=== PATIENT | female | born 1985 | race Caucasian/White ===

== ENCOUNTER 2017-08-26 22:24 | Inpatient (IN) | payer BC ==
[2017-08-26] MEDS ORDERED: Sodium Chloride 0.9% 10 ML Syringe FLUSH PRN (23:08)
[2017-08-26] MEDS ORDERED: Ondansetron 4 MG/2 ML SDV IVPUSH PRN (23:08)
[2017-08-26] MEDS ORDERED: Calcium Carbonate 500 MG Tab.Chew PO PRN (23:16)
[2017-08-27] MEDS ORDERED: Bupivacaine 0.25% 10 ML SDV ONE (01:00)
[2017-08-27] MEDS: Lactated Ringers 1,000 ML IV SCH ×5 (01:30→07:18)
[2017-08-27] MEDS ORDERED: fentaNYL 100 MCG/2 ML SDV ONE (01:57)
[2017-08-27] MEDS ORDERED: diphenhydrAMINE 50 MG/ML SDV IVPUSH PRN (02:07)
[2017-08-27] MEDS ORDERED: ePHEDrine 50 MG/ML SDV IVPUSH PRN (02:07)
[2017-08-27] MEDS ORDERED: Ondansetron 4 MG/2 ML SDV IVPUSH PRN (02:07)
[2017-08-27] MEDS ORDERED: fentaNYL 100 MCG/2 ML SDV EPIDUR PRN (02:07)
[2017-08-27] MEDS ORDERED: Bupivacaine/fentaNYL/NS 100 ML Bag EPIDUR SCH (02:15)
--- NOTE | 2017-08-27 03:46 | PCM.PREANE ---
Preanesthetic Assessment - Anesthesia/Transfusion/Family Hx Anesthesia History: Prior Anesthesia Reaction Type of Anesthesia Reaction: Excessive Nausea/Vomiting Family History of Anesthesia Reaction: No Transfusion History: No Prior Transfusion(s) - Review of Systems General: No Symptoms Pulmonary: No Symptoms Cardiovascular: No Symptoms Gastrointestinal: No Symptoms Neurological: No Symptoms Other: Reports: None - Physical Assessment Pulse: 84 O2 Sat by Pulse Oximetry: 99 Respiratory Rate: 16 Blood Pressure: 114/75 Vital Signs: Last Vital Signs Temp 36.6 C 08/26/17 23:10 Pulse 84 08/26/17 22:47 Resp 16 08/26/17 23:10 BP 114/75 08/26/17 22:47 Pulse Ox Height: 1.7 m Weight: 78.471 kg ASA Class: 2 Mental Status: Alert & Oriented x3 Airway Class: Mallampati = 1 Dentition: Reports: Normal Dentition Thyro-Mental Finger Breadths: 3 Mouth Opening Finger Breadths: 3 ROM/Head Extension: Full Lungs: Clear to Auscultation, Normal Respiratory Effort Cardiovascular: Regular Rate, Regular Rhythm - Lab Values: Laboratory Last Values WBC 8.89 K/mm3 (3.98-10.04) 08/26/17 23:20 RBC 4.35 M/mm3 (3.98-5.22) 08/26/17 23:20 Hgb 12.4 gm/L (11.2-15.7) 08/26/17 23:20 Hct 36.2 % (34.1-44.9) 08/26/17 23:20 MCV 83.2 fl (79.4-94.8) 08/26/17 23:20 MCH 28.5 pg (25.6-32.2) 08/26/17 23:20 MCHC 34.3 g/dl (32.2-35.5) 08/26/17 23:20 RDW Std Deviation 54.5 fL (36.4-46.3) H 08/26/17 23:20 Plt Count 146 K/mm3 (182-369) L 08/26/17 23:20 MPV 8.2 fl (9.4-12.3) L 08/26/17 23:20 Neut % (Auto) 63.1 % (34.0-71.1) 08/26/17 23:20 Lymph % (Auto) 26.0 % (19.3-51.7) 08/26/17 23:20 [place] % (Auto) 8.4 % (4.7-12.5) 08/26/17 23:20 Eos % (Auto) 1.5 (0.7-5.8) 08/26/17 23:20 Baso % (Auto) 0.3 % (0.1-1.2) 08/26/17 23:20 Neut # (Auto) 5.61 K/mm3 (1.56-6.13) 08/26/17 23:20 Lymph # (Auto) 2.31 K/mm3 (1.18-3.74) 08/26/17 23:20 [place] # (Auto) 0.75 K/mm3 (0.24-0.36) H 08/26/17 23:20 Eos # (Auto) 0.13 K/mm3 (0.04-0.36) 08/26/17 23:20 Baso # (Auto) 0.03 K/mm3 (0.01-0.08) 08/26/17 23:20 Manual Slide Review Abnormal smear 08/26/17 23:20 - Allergies Allergies/Adverse Reactions: Allergies Allergy/AdvReac Type Severity Reaction Status Date / Time blackberries Allergy Intermediate Hives Uncoded 07/12/17 04:11 - Acknowledgements Anesthesia Type Planned: Epidural Pt an Appropriate Candidate for the Planned Anesthesia: Yes Alternatives and Risks of Anesthesia Discussed w Pt/Guardian: Yes Pt/Guardian Understands and Agrees with Anesthesia Plan: Yes PreAnesthesia Questionnaire [employer] History: Reports: - Past Surgical History Musculoskeletal Surgical History: Reports: Other (See Below) Other Musculoskeletal Surgeries/Procedures:: acl- left - SUBSTANCE USE Smoking Status *Q: Never Smoker Second Hand Smoke Exposure: No Recreational Drug Use History: No - HOME MEDS Home Medications: Home Meds Pnv with Ca,No.72/Iron/Fa [Pnv Plus Multivit Tab] 1 each PO DAILY 05/23 [History] Ferrous Sulfate [Iron] 1 tab PO DAILY 08/26/17 [History] - CURRENT (IN HOUSE) MEDS Current Meds: Current Medications Calcium Carbonate/Glycine (Tums) 500 mg PO Q2HR PRN PRN Reason: Indigestion Last Admin: 08/26/17 23:31 Dose: 500 mg Diphenhydramine HCl (Benadryl) 25 mg IVPUSH Q6H PRN PRN Reason: Pruritis Ephedrine Sulfate (Ephedrine Sulfate) 5 mg IVPUSH ASDIRECTED PRN PRN Reason: Hypotension Fentanyl (Sublimaze) 100 mcg EPIDUR ONETIME PRN PRN Reason: Pain Fentanyl/Bupivacaine HCl (Fentanyl/Bupivacaine/Ns 2 Mcg-0.125% 100 Ml) 100 ml EPIDUR ASDIRECTED [facility] Last Admin: 08/27/17 02:44 Dose: 100 ml Lactated Ringer's (Ringers, Lactated) 1,000 mls @ 100 mls/hr IV ASDIRECTED ANNALISE Last Admin: 08/27/17 02:51 Dose: 999 mls/hr Oxytocin 20 unit/ Lactated (Ringer's) 1,002 mls @ 1,503 mls/hr IV TITRATE [facility]; Protocol Ondansetron HCl (Zofran) 4 mg IVPUSH Q4H PRN PRN Reason: Nausea/Vomiting Ondansetron HCl (Zofran) 4 mg IVPUSH ONETIME PRN PRN Reason: Nausea/Vomiting Sodium Chloride (Saline Flush) 10 ml FLUSH ASDIRECTED PRN PRN Reason: Keep Vein Open Discontinued Medications Fentanyl (Sublimaze) Confirm Administered Dose 100 mcg .ROUTE .STK-MED ONE Stop: 08/27/17 01:58 Last Admin: 08/27/17 02:45 Dose: 100 mcg
[2017-08-27] MEDS ORDERED: Oxytocin/Lactated Ringers 10 UNIT/1,000 ML BAG IV SCH (04:30)
--- NOTE | 2017-08-27 07:16 | PCM.LDHP ---
L&D History of Present Illness - General Date of Service: 08/27/17 Admit Problem/Dx: Patient Status Order with Admit Dx/Problem 08/26/17 23:10 Patient Status [ADT] Routine Admission Diagnosis/Problem Admission Diagnosis/Problem Normal labor Source of Information: Patient History Limitations: Reports: No Limitations - History of Present Illness Introduction:: 31-year-old MARILYN 08/29/17 presented to labor and delivery on 08/26/17 with spontaneous rupture membranes at 2100 hrs. clear fluid patient on 08/27/17 is 39 weeks and 5 days estimated gestational age. Group B strep is negative patient is 8 cm dilated cephalic presentation Pain Score: 10 Improves with: Reports: None Worsens with: Reports: None Associated Symptoms: Reports: N - Related Data Allergies/Adverse Reactions: Allergies Allergy/AdvReac Type Severity Reaction Status Date / Time blackberries Allergy Intermediate Hives Uncoded 07/12/17 04:11 Home Medications: Home Meds Pnv with Ca,No.72/Iron/Fa [Pnv Plus Multivit Tab] 1 each PO DAILY 05/23 [History] Ferrous Sulfate [Iron] 1 tab PO DAILY 08/26/17 [History] Past Medical History [facility] History: Reports: - Past Surgical History Musculoskeletal Surgical History: Reports: Other (See Below) Other Musculoskeletal Surgeries/Procedures:: acl- left Social & Family History - Family History Family Medical History: Noncontributory - Tobacco Use Smoking Status *Q: Never Smoker Second Hand Smoke Exposure: No - Recreational Drug Use Recreational Drug Use: No H&P Review of Systems - Review of Systems: Review Of Systems: See Below General: Reports: No Symptoms HEENT: Reports: No Symptoms Pulmonary: Reports: No Symptoms Cardiovascular: Reports: No Symptoms Gastrointestinal: Reports: No Symptoms Genitourinary: Reports: No Symptoms Musculoskeletal: Reports: No Symptoms Skin: Reports: No Symptoms Psychiatric: Reports: No Symptoms Neurological: Reports: No Symptoms Hematologic/Lymphatic: Reports: No Symptoms Immunologic: Reports: No Symptoms L&D Exam - Exam Exam: See Below - Vital Signs Vital Signs: Last Vital Signs Temp 97.9 F 08/26/17 23:10 Pulse 84 08/27/17 03:46 Resp 16 08/27/17 03:46 BP 114/75 08/27/17 03:46 Pulse Ox 99 08/27/17 03:46 Weight: 173 lb - OB Specific Fundal Height In cm: 39 Contraction Duration (sec): 60 Contraction Frequency (min): 5 Contraction Intensity: Mild to Moderate Movement: Active Heart Tones: Present Heart Tones per Min: 135 Heart Rate (FHR) Variability: Moderate (6-25 bmp) Presentation: Vertex - [place] Score [place] Score Cervix Position: Posterior [place] Score Consistency: Soft [place] Score Effacement: >80% [place] Score Dilation: 3-4 cm [place] Score 's Station: -1 ,0 [place] Score Total: 9 - Exam General: Alert, Oriented HEENT: Conjunctiva Clear, Mucosa Moist & [place], PERRLA Neck: Supple, Trachea Midline Lungs: Clear to Auscultation, Normal Respiratory Effort Cardiovascular: Regular Rate, Regular Rhythm GI/Abdominal Exam: Normal Bowel Sounds, Soft, Non-Tender Genitourinary: Normal external exam, Normal bimanual exam, Normal speculum exam Extremities: Normal Inspection, Normal Range of Motion, Non-Tender, No Pedal Edema, Normal Capillary Refill Skin: Warm, Dry, Intact Neurological: Reflexes Equal Bilateral Psychiatric: Alert, Normal Affect, Normal Mood - Patient Data Lab Results Last 24 hrs: Laboratory Results - last 24 hr 08/26/17 Range/Units 23:20 WBC 8.89 (3.98-10.04) K/mm3 RBC 4.35 (3.98-5.22) M/mm3 Hgb 12.4 (11.2-15.7) gm/L Hct 36.2 (34.1-44.9) % MCV 83.2 (79.4-94.8) fl MCH 28.5 (25.6-32.2) pg MCHC 34.3 (32.2-35.5) g/dl RDW Std Deviation 54.5 H (36.4-46.3) fL Plt Count 146 L (182-369) K/mm3 MPV 8.2 L (9.4-12.3) fl Neut % (Auto) 63.1 (34.0-71.1) % Lymph % (Auto) 26.0 (19.3-51.7) % [place] % (Auto) 8.4 (4.7-12.5) % Eos % (Auto) 1.5 (0.7-5.8) Baso % (Auto) 0.3 (0.1-1.2) % Neut # (Auto) 5.61 (1.56-6.13) K/mm3 Lymph # (Auto) 2.31 (1.18-3.74) K/mm3 [place] # (Auto) 0.75 H (0.24-0.36) K/mm3 Eos # (Auto) 0.13 (0.04-0.36) K/mm3 Baso # (Auto) 0.03 (0.01-0.08) K/mm3 Manual Slide Review Abnormal smear Result Diagrams: 08/26/17 23:20 - Problem List (1) 39 weeks gestation of SNOMED Code(s): 73648182 ICD Code: Z3A.39 - 39 WEEKS GESTATION OF Status: Acute Current Visit: Yes Problem List Initiated/Reviewed/Updated: No Orders Last 24hrs: Active Orders 24 hr Category Date Time Status Patient Status [ADT] Routine ADT 08/26/17 23:10 Active Activity as Tolerated [RC] PFP Care 08/26/17 23:10 Active Communication Order [RC] ASDIRECTED Care 08/26/17 23:10 Active Heart Tones [RC] ASDIRECTED Care 08/26/17 23:10 Active Notify Provider [RC] ASDIRECTED Care 08/27/17 02:07 Active Notify Provider [RC] PFP Care 08/26/17 23:10 Active Notify Provider [RC] PRN Care 08/26/17 23:10 Active Peripheral IV Care [RC] . DIRECTED Care 08/26/17 23:10 Active Pump Management, Intrathecal [RC] ASDIRECTED Care 08/26/17 23:10 Active Urinary Catheter Assessment [RC] ASDIRECTED Care 08/26/17 23:08 Active Vital Signs [RC] 09,15,21,03 Care 08/26/17 23:10 Active Clear Liquid Diet [DIET] Diet 08/26/17 Dinner Active Bupivacaine/fentaNYL/NS [fentaNYL/Bupivacaine/NS 2 MCG- Med 08/27/17 02:15 Active 0.125% 100 ML] 100 ml EPIDUR ASDIRECTED Calcium Carbonate [Tums] Med 08/26/17 23:16 Active 500 mg PO Q2HR PRN Lactated Ringers [Ringers, Lactated] 1,000 ml Med 08/26/17 23:15 Active IV ASDIRECTED Ondansetron [Zofran] Med 08/27/17 02:07 Active 4 mg IVPUSH ONETIME PRN Ondansetron [Zofran] Med 08/26/17 23:08 Active 4 mg IVPUSH Q4H PRN Oxytocin [Pitocin] 20 unit Med 08/26/17 23:15 Active Lactated Ringers [Ringers, Lactated] 1,000 ml IV TITRATE Oxytocin/Lactated Ringers [Pitocin in LR 10 Units/1,000 Med 08/27/17 04:30 Active ML] 10 unit in 1,000 ml IV TITRATE Sodium Chloride 0.9% [Saline Flush] Med 08/26/17 23:08 Active 10 ml FLUSH ASDIRECTED PRN diphenhydrAMINE [Benadryl] [facility] 08/27/17 02:07 Active 25 mg IVPUSH Q6H PRN ePHEDrine [ePHEDrine Sulfate] [facility] 08/27/17 02:07 Active 5 mg IVPUSH ASDIRECTED PRN fentaNYL [Sublimaze] Med 08/27/17 02:07 Active 100 mcg EPIDUR ONETIME PRN Electronic Heart Tones Ext w TOCO [WOMSER] Oth 08/26/17 23:10 Ordered Routine Electronic Heart Tones Internal [WOMSER] Per Unit Ot 08/26/17 23:10 Ordered Routine Peripheral IV Insertion Adult [OM.PC] Routine Ot 08/26/17 23:10 Ordered Resuscitation Status Routine Resus Stat 08/26/17 23:08 Ordered Medication Orders Calcium Carbonate/Glycine (Tums) 500 mg PO Q2HR PRN PRN Reason: Indigestion Last Admin: 08/26/17 23:31 Dose: 500 mg Diphenhydramine HCl (Benadryl) 25 mg IVPUSH Q6H PRN PRN Reason: Pruritis Ephedrine Sulfate (Ephedrine Sulfate) 5 mg IVPUSH ASDIRECTED PRN PRN Reason: Hypotension Fentanyl (Sublimaze) 100 mcg EPIDUR ONETIME PRN PRN Reason: Pain Fentanyl/Bupivacaine HCl (Fentanyl/Bupivacaine/Ns 2 Mcg-0.125% 100 Ml) 100 ml EPIDUR ASDIRECTED [facility] Last Admin: 08/27/17 02:44 Dose: 100 ml Lactated Ringer's (Ringers, Lactated) 1,000 mls @ 100 mls/hr IV ASDIRECTED ANNALISE Last Admin: 08/27/17 05:20 Dose: 500 mls/hr Infusion: 08/27/17 03:52 Dose: 999 mls/hr Admin: 08/27/17 02:51 Dose: 999 mls/hr Infusion: 08/27/17 02:51 Dose: 999 mls/hr Admin: 08/27/17 02:15 Dose: 999 mls/hr Infusion: 08/27/17 02:15 Dose: 999 mls/hr Admin: 08/27/17 01:30 Dose: 999 mls/hr Oxytocin 20 unit/ Lactated (Ringer's) 1,002 mls @ 1,503 mls/hr IV TITRATE ANNALISE; Protocol Oxytocin/Lactated Ringer's (Pitocin In Lr 10 Units/1,000 Ml) 10 unit in 1,000 mls @ 12 mls/hr IV TITRATE ANNALISE; Protocol Last Admin: 08/27/17 04:43 Dose: 2 munits/min, 12 mls/hr Ondansetron HCl (Zofran) 4 mg IVPUSH Q4H PRN PRN Reason: Nausea/Vomiting Ondansetron HCl (Zofran) 4 mg IVPUSH ONETIME PRN PRN Reason: Nausea/Vomiting Sodium Chloride (Saline Flush) 10 ml FLUSH ASDIRECTED PRN PRN Reason: Keep Vein Open Assessment/Plan Comment:: Plan delivery.
[2017-08-27] MEDS ORDERED: Lidocaine 1% 50 ML MDV ONE (08:06)
--- NOTE | 2017-08-27 08:23 | PCM.DEL ---
L & D Note - General Info Date of Service: 08/27/17 Mother's Due Date: 08/28/17 - Delivery Note Labor: Spontaneous, Augmented by Oxytocin Delivery Outcome: Livebirth (Male liveborn at 0803 hrs. on 08/27/17Wednesday MARTIR nuchal cord 1 tight cut prior to delivery and delivered within 10 seconds. Apgars 7/9 weight 30/5/10 grams 7 pounds 11.8 ounces second-degree laceration) Infant Delivery Method: Spontaneous Vaginal Delivery-Single Delivery Mode: Spontaneous Presentation: Right Occiput Anterior (MARTIR) Nuchal Cord: Present (Tight cut prior to delivery because unable to reduce over head or shoulders delivered within 10 seconds) Prep: Povidone-Iodine (Betadine Anesthesia Type: Epidural Amniotic Fluid Description: Clear Episiotomy Type: None Laceration: 2nd Degree Suture type: Other (Monocryl 30 times one) Suture size: 3-0 Placenta: Intact, Spontaneous (Eccentric cord insertion) Estimated Blood Loss: 250 Resuscitation Needed: No [place]: Suctioned, Bulb Syringe, Stimulated, Warmed, [place] Used, Warmer Used Provider: Juan Mata Score 1 min: 7 Score 5 min: 9 - Patient Data Vitals - Most Recent: Last Vital Signs Temp 97.9 F 08/26/17 23:10 Pulse 84 08/27/17 03:46 Resp 16 08/27/17 03:46 BP 114/75 08/27/17 03:46 Pulse Ox 99 08/27/17 03:46 Weight - Most Recent: 173 lb Lab Results Last 24 Hours: Laboratory Results - last 24 hr 08/26/17 Range/Units 23:20 WBC 8.89 (3.98-10.04) K/mm3 RBC 4.35 (3.98-5.22) M/mm3 Hgb 12.4 (11.2-15.7) gm/L Hct 36.2 (34.1-44.9) % MCV 83.2 (79.4-94.8) fl MCH 28.5 (25.6-32.2) pg MCHC 34.3 (32.2-35.5) g/dl RDW Std Deviation 54.5 H (36.4-46.3) fL Plt Count 146 L (182-369) K/mm3 MPV 8.2 L (9.4-12.3) fl Neut % (Auto) 63.1 (34.0-71.1) % Lymph % (Auto) 26.0 (19.3-51.7) % [place] % (Auto) 8.4 (4.7-12.5) % Eos % (Auto) 1.5 (0.7-5.8) Baso % (Auto) 0.3 (0.1-1.2) % Neut # (Auto) 5.61 (1.56-6.13) K/mm3 Lymph # (Auto) 2.31 (1.18-3.74) K/mm3 [place] # (Auto) 0.75 H (0.24-0.36) K/mm3 Eos # (Auto) 0.13 (0.04-0.36) K/mm3 Baso # (Auto) 0.03 (0.01-0.08) K/mm3 Manual Slide Review Abnormal smear Med Orders - Current: Current Medications Calcium Carbonate/Glycine (Tums) 500 mg PO Q2HR PRN PRN Reason: Indigestion Last Admin: 08/26/17 23:31 Dose: 500 mg Diphenhydramine HCl (Benadryl) 25 mg IVPUSH Q6H PRN PRN Reason: Pruritis Ephedrine Sulfate (Ephedrine Sulfate) 5 mg IVPUSH ASDIRECTED PRN PRN Reason: Hypotension Fentanyl (Sublimaze) 100 mcg EPIDUR ONETIME PRN PRN Reason: Pain Fentanyl/Bupivacaine HCl (Fentanyl/Bupivacaine/Ns 2 Mcg-0.125% 100 Ml) 100 ml EPIDUR ASDIRECTED ANNALISE Last Admin: 08/27/17 02:44 Dose: 100 ml Lactated Ringer's (Ringers, Lactated) 1,000 mls @ 100 mls/hr IV ASDIRECTED ANNALISE Last Admin: 08/27/17 07:18 Dose: 500 mls/hr Oxytocin 20 unit/ Lactated (Ringer's) 1,002 mls @ 1,503 mls/hr IV TITRATE ANNALISE; Protocol Oxytocin/Lactated Ringer's (Pitocin In Lr 10 Units/1,000 Ml) 10 unit in 1,000 mls @ 12 mls/hr IV TITRATE ANNALISE; Protocol Last Admin: 08/27/17 04:43 Dose: 2 munits/min, 12 mls/hr Ondansetron HCl (Zofran) 4 mg IVPUSH Q4H PRN PRN Reason: Nausea/Vomiting Ondansetron HCl (Zofran) 4 mg IVPUSH ONETIME PRN PRN Reason: Nausea/Vomiting Sodium Chloride (Saline Flush) 10 ml FLUSH ASDIRECTED PRN PRN Reason: Keep Vein Open Discontinued Medications Fentanyl (Sublimaze) Confirm Administered Dose 100 mcg .ROUTE .STK-MED ONE Stop: 08/27/17 01:58 Last Admin: 08/27/17 02:45 Dose: 100 mcg Lidocaine HCl (Xylocaine 1%) Confirm Administered Dose 50 ml .ROUTE .STK-MED ONE Stop: 08/27/17 08:07 - Problem List & Annotations (1) 39 weeks gestation of SNOMED Code(s): 16680094 Code(s): Z3A.39 - 39 WEEKS GESTATION OF Status: Acute Current Visit: Yes (2) Nuchal cord affecting delivery SNOMED Code(s): 942619659, 479063007 Code(s): O69.81X0 - LABOR AND DEL COMP BY CORD AROUND NECK, W/O COMPRSN, UNSP Status: Acute Current Visit: Yes (3) Second degree perineal laceration during delivery SNOMED Code(s): 8037669 Code(s): O70.1 - SECOND DEGREE PERINEAL LACERATION DURING DELIVERY Status: Acute Current Visit: Yes - Problem List Review Problem List Initiated/Reviewed/Updated: No - My Orders Last 24 Hours: My Active Orders 08/26/17 23:08 Urinary Catheter Assessment [RC] ASDIRECTED Ondansetron [Zofran] 4 mg IVPUSH Q4H PRN Sodium Chloride 0.9% [Saline Flush] 10 ml FLUSH ASDIRECTED PRN Resuscitation Status Routine 08/26/17 23:10 Patient Status [ADT] Routine Activity as Tolerated [RC] PFP Communication Order [RC] ASDIRECTED Heart Tones [RC] ASDIRECTED Notify Provider [RC] PFP Notify Provider [RC] PRN Peripheral IV Care [RC] . DIRECTED Pump Management, Intrathecal [RC] ASDIRECTED Vital Signs [RC] 09,15,21,03 Electronic Heart Tones Ext w TOCO [WOMSER] Routine Electronic Heart Tones Internal [WOMSER] Per Unit Routine Peripheral IV Insertion Adult [OM.PC] Routine 08/26/17 23:15 Lactated Ringers [Ringers, Lactated] 1,000 ml IV ASDIRECTED Oxytocin [Pitocin] 20 unit Lactated Ringers [Ringers, Lactated] 1,000 ml IV TITRATE 08/26/17 23:16 Calcium Carbonate [Tums] 500 mg PO Q2HR PRN 08/26/17 Dinner Clear Liquid Diet [DIET] 08/27/17 04:30 Oxytocin/Lactated Ringers [Pitocin in LR 10 Units/1,000 ML] 10 unit in 1,000 ml IV TITRATE - Plan Plan:: Plan delivery.
[2017-08-27] MEDS ORDERED: Docusate Sodium 100 MG Cap PO PRN (09:31)
[2017-08-27] MEDS ORDERED: Acetaminophen 325 MG Tab PO PRN (09:31)
[2017-08-27] MEDS ORDERED: Witch Hazel Medicated Pads 100/Jar TOP PRN (10:02)
[2017-08-27] MEDS ORDERED: Benzocaine/Menthol 20%-0.5% Spray 56 GM Canister TOP PRN (10:04)
--- NOTE | 2017-08-27 13:16 | PCM48HPAN ---
Post Anesthesia Note - EVALUATION WITHIN 48HRS OF ANESTHETIC Vital Signs in Normal Range: Yes Patient Participated in Evaluation: Yes Respiratory Function Stable: Yes Airway Patent: Yes Cardiovascular Function Stable: Yes Hydration Status Stable: Yes Pain Control Satisfactory: Yes Nausea and Vomiting Control Satisfactory: Yes Mental Status Recovered: Yes
[2017-08-27] MEDS: Ibuprofen 600 MG Tab PO PRN ×2 (17:55→22:29)
[2017-08-27] MEDS ORDERED: Lanolin 100% Cream 7 GM Tube TOP PRN (21:00)
[2017-08-28] MEDS: Ibuprofen 600 MG Tab PO PRN (09:38)
--- NOTE | 2017-08-28 10:30 | PCM.DCSUM1 ---
Discharge Summary - Hospital Course Free Text/Narrative:: [facility] LIVE L/D Delivery Note Patient Name: KARINA LOPES Date of : 87 Patient Status: Inpatient Attending Provider: Juan Mata Date: 08/27/17 08:18 Initialization Date: 08/27/17 08:18 L & D Note - General Info Date of Service: 08/27/17 Mother's Due Date: 08/28/17 - Delivery Note Labor: Spontaneous, Augmented by Oxytocin Delivery Outcome: Livebirth (Male liveborn at 0803 hrs. on 08/27/17Wednesday MARTIR nuchal cord 1 tight cut prior to delivery and delivered within 10 seconds. Apgars 7/9 weight 30/5/10 grams 7 pounds 11.8 ounces second-degree laceration) Infant Delivery Method: Spontaneous Vaginal Delivery-Single Delivery Mode: Spontaneous Presentation: Right Occiput Anterior (MARTIR) Nuchal Cord: Present (Tight cut prior to delivery because unable to reduce over head or shoulders delivered within 10 seconds) Prep: Povidone-Iodine (Betadine Anesthesia Type: Epidural Amniotic Fluid Description: Clear Episiotomy Type: None Laceration: 2nd Degree Suture type: Other (Monocryl 30 times one) Suture size: 3-0 Placenta: Intact, Spontaneous (Eccentric cord insertion) Estimated Blood Loss: 250 Resuscitation Needed: No : Suctioned, Bulb Syringe, Stimulated, Warmed, [place] Used, Warmer Used Provider: Juan Mata Score 1 min: 7 Score 5 min: 9 - Patient Data Vitals - Most Recent: Last Vital Signs Temp 97.9 F 08/26/17 23:10 Pulse 84 08/27/17 03:46 Resp 16 08/27/17 03:46 BP 114/75 08/27/17 03:46 Pulse Ox 99 08/27/17 03:46 Weight - Most Recent: 173 lb Lab Results Last 24 Hours: Laboratory Results - last 24 hr 08/26/17 Range/Units 23:20 WBC 8.89 (3.98-10.04) K/mm3 RBC 4.35 (3.98-5.22) M/mm3 Hgb 12.4 (11.2-15.7) gm/L Hct 36.2 (34.1-44.9) % MCV 83.2 (79.4-94.8) fl MCH 28.5 (25.6-32.2) pg MCHC 34.3 (32.2-35.5) g/dl RDW Std Deviation 54.5 H (36.4-46.3) fL Plt Count 146 L (182-369) K/mm3 MPV 8.2 L (9.4-12.3) fl Neut % (Auto) 63.1 (34.0-71.1) % Lymph % (Auto) 26.0 (19.3-51.7) % [place] % (Auto) 8.4 (4.7-12.5) % Eos % (Auto) 1.5 (0.7-5.8) Baso % (Auto) 0.3 (0.1-1.2) % Neut # (Auto) 5.61 (1.56-6.13) K/mm3 Lymph # (Auto) 2.31 (1.18-3.74) K/mm3 [place] # (Auto) 0.75 H (0.24-0.36) K/mm3 Eos # (Auto) 0.13 (0.04-0.36) K/mm3 Baso # (Auto) 0.03 (0.01-0.08) K/mm3 Manual Slide Review Abnormal smear Med Orders - Current: Current Medications Calcium Carbonate/Glycine (Tums) 500 mg PO Q2HR PRN PRN Reason: Indigestion Last Admin: 08/26/17 23:31 Dose: 500 mg Diphenhydramine HCl (Benadryl) 25 mg IVPUSH Q6H PRN PRN Reason: Pruritis Ephedrine Sulfate (Ephedrine Sulfate) 5 mg IVPUSH ASDIRECTED PRN PRN Reason: Hypotension Fentanyl (Sublimaze) 100 mcg EPIDUR ONETIME PRN PRN Reason: Pain Fentanyl/Bupivacaine HCl (Fentanyl/Bupivacaine/Ns 2 Mcg-0.125% 100 Ml) 100 ml EPIDUR ASDIRECTED [facility] Last Admin: 08/27/17 02:44 Dose: 100 ml Lactated Ringer's (Ringers, Lactated) 1,000 mls @ 100 mls/hr IV ASDIRECTED [facility] Last Admin: 08/27/17 07:18 Dose: 500 mls/hr Oxytocin 20 unit/ Lactated (Ringer's) 1,002 mls @ 1,503 mls/hr IV TITRATE ANNALISE; Protocol Oxytocin/Lactated Ringer's (Pitocin In Lr 10 Units/1,000 Ml) 10 unit in 1,000 mls @ 12 mls/hr IV TITRATE ANNALISE; Protocol Last Admin: 08/27/17 04:43 Dose: 2 munits/min, 12 mls/hr Ondansetron HCl (Zofran) 4 mg IVPUSH Q4H PRN PRN Reason: Nausea/Vomiting Ondansetron HCl (Zofran) 4 mg IVPUSH ONETIME PRN PRN Reason: Nausea/Vomiting Sodium Chloride (Saline Flush) 10 ml FLUSH ASDIRECTED PRN PRN Reason: Keep Vein Open Discontinued Medications Fentanyl (Sublimaze) Confirm Administered Dose 100 mcg .ROUTE .STK-MED ONE Stop: 08/27/17 01:58 Last Admin: 08/27/17 02:45 Dose: 100 mcg Lidocaine HCl (Xylocaine 1%) Confirm Administered Dose 50 ml .ROUTE .STK-MED ONE Stop: 08/27/17 08:07 - Problem List & Annotations (1) 39 weeks gestation of SNOMED Code(s): 82780549 Code(s): Z3A.39 - 39 WEEKS GESTATION OF Status: Acute Current Visit: Yes (2) Nuchal cord affecting delivery SNOMED Code(s): 191770425, 149995698 Code(s): O69.81X0 - LABOR AND DEL COMP BY CORD AROUND NECK, W/O COMPRSN, UNSP Status: Acute Current Visit: Yes (3) Second degree perineal laceration during delivery SNOMED Code(s): 6327981 Code(s): O70.1 - SECOND DEGREE PERINEAL LACERATION DURING DELIVERY Status: Acute Current Visit: Yes - Problem List Review Problem List Initiated/Reviewed/Updated: No - My Orders Last 24 Hours: My Active Orders 08/26/17 23:08 Urinary Catheter Assessment [RC] ASDIRECTED Ondansetron [Zofran] 4 mg IVPUSH Q4H PRN Sodium Chloride 0.9% [Saline Flush] 10 ml FLUSH ASDIRECTED PRN Resuscitation Status Routine 08/26/17 23:10 Patient Status [ADT] Routine Activity as Tolerated [RC] PFP Communication Order [RC] ASDIRECTED Heart Tones [RC] ASDIRECTED Notify Provider [RC] PFP Notify Provider [RC] PRN Peripheral IV Care [RC] . DIRECTED Pump Management, Intrathecal [RC] ASDIRECTED Vital Signs [RC] 09,15,21,03 Electronic Heart Tones Ext w TOCO [WOMSER] Routine Electronic Heart Tones Internal [WOMSER] Per Unit Routine Peripheral IV Insertion Adult [OM.PC] Routine 08/26/17 23:15 Lactated Ringers [Ringers, Lactated] 1,000 ml IV ASDIRECTED Oxytocin [Pitocin] 20 unit Lactated Ringers [Ringers, Lactated] 1,000 ml IV TITRATE 08/26/17 23:16 Calcium Carbonate [Tums] 500 mg PO Q2HR PRN 08/26/17 Dinner Clear Liquid Diet [DIET] 08/27/17 04:30 Oxytocin/Lactated Ringers [Pitocin in LR 10 Units/1,000 ML] 10 unit in 1,000 ml IV TITRATE - Plan Plan:: Plan delivery. HPI Initial Comments: [facility] LIVE L/D Delivery Note Patient Name: KARINA LOPES Date of : 87 Patient Status: Inpatient Attending Provider: Juan Mata Date: 08/27/17 08:18 Initialization Date: 08/27/17 08:18 L & D Note - General Info Date of Service: 08/27/17 Mother's Due Date: 08/28/17 - Delivery Note Labor: Spontaneous, Augmented by Oxytocin Delivery Outcome: Livebirth (Male liveborn at 0803 hrs. on 08/27/17WedJose Luis MARTIR nuchal cord 1 tight cut prior to delivery and delivered within 10 seconds. Apgars 7/9 weight 30/5/10 grams 7 pounds 11.8 ounces second-degree laceration) Infant Delivery Method: Spontaneous Vaginal Delivery-Single Infant Delivery Mode: Spontaneous Presentation: Right Occiput Anterior (MARTIR) Nuchal Cord: Present (Tight cut prior to delivery because unable to reduce over head or shoulders delivered within 10 seconds) Prep: Povidone-Iodine (Betadine Anesthesia Type: Epidural Amniotic Fluid Description: Clear Episiotomy Type: None Laceration: 2nd Degree Suture type: Other (Monocryl 30 times one) Suture size: 3-0 Placenta: Intact, Spontaneous (Eccentric cord insertion) Estimated Blood Loss: 250 Resuscitation Needed: No [place]: Suctioned, Bulb Syringe, Stimulated, Warmed, [place] Used, Warmer Used Provider: Juan Mata Score 1 min: 7 Score 5 min: 9 - Patient Data Vitals - Most Recent: Last Vital Signs Temp 97.9 F 08/26/17 23:10 Pulse 84 08/27/17 03:46 Resp 16 08/27/17 03:46 BP 114/75 08/27/17 03:46 Pulse Ox 99 08/27/17 03:46 Weight - Most Recent: 173 lb Lab Results Last 24 Hours: Laboratory Results - last 24 hr 08/26/17 Range/Units 23:20 WBC 8.89 (3.98-10.04) K/mm3 RBC 4.35 (3.98-5.22) M/mm3 Hgb 12.4 (11.2-15.7) gm/L Hct 36.2 (34.1-44.9) % MCV 83.2 (79.4-94.8) fl MCH 28.5 (25.6-32.2) pg MCHC 34.3 (32.2-35.5) g/dl RDW Std Deviation 54.5 H (36.4-46.3) fL Plt Count 146 L (182-369) K/mm3 MPV 8.2 L (9.4-12.3) fl Neut % (Auto) 63.1 (34.0-71.1) % Lymph % (Auto) 26.0 (19.3-51.7) % [place] % (Auto) 8.4 (4.7-12.5) % Eos % (Auto) 1.5 (0.7-5.8) Baso % (Auto) 0.3 (0.1-1.2) % Neut # (Auto) 5.61 (1.56-6.13) K/mm3 Lymph # (Auto) 2.31 (1.18-3.74) K/mm3 [place] # (Auto) 0.75 H (0.24-0.36) K/mm3 Eos # (Auto) 0.13 (0.04-0.36) K/mm3 Baso # (Auto) 0.03 (0.01-0.08) K/mm3 Manual Slide Review Abnormal smear Med Orders - Current: Current Medications Calcium Carbonate/Glycine (Tums) 500 mg PO Q2HR PRN PRN Reason: Indigestion Last Admin: 08/26/17 23:31 Dose: 500 mg Diphenhydramine HCl (Benadryl) 25 mg IVPUSH Q6H PRN PRN Reason: Pruritis Ephedrine Sulfate (Ephedrine Sulfate) 5 mg IVPUSH ASDIRECTED PRN PRN Reason: Hypotension Fentanyl (Sublimaze) 100 mcg EPIDUR ONETIME PRN PRN Reason: Pain Fentanyl/Bupivacaine HCl (Fentanyl/Bupivacaine/Ns 2 Mcg-0.125% 100 Ml) 100 ml EPIDUR ASDIRECTED ANNALISE Last Admin: 08/27/17 02:44 Dose: 100 ml Lactated Ringer's (Ringers, Lactated) 1,000 mls @ 100 mls/hr IV ASDIRECTED ANNALISE Last Admin: 08/27/17 07:18 Dose: 500 mls/hr Oxytocin 20 unit/ Lactated (Ringer's) 1,002 mls @ 1,503 mls/hr IV TITRATE ANNALISE; Protocol Oxytocin/Lactated Ringer's (Pitocin In Lr 10 Units/1,000 Ml) 10 unit in 1,000 mls @ 12 mls/hr IV TITRATE ANNALISE; Protocol Last Admin: 08/27/17 04:43 Dose: 2 munits/min, 12 mls/hr Ondansetron HCl (Zofran) 4 mg IVPUSH Q4H PRN PRN Reason: Nausea/Vomiting Ondansetron HCl (Zofran) 4 mg IVPUSH ONETIME PRN PRN Reason: Nausea/Vomiting Sodium Chloride (Saline Flush) 10 ml FLUSH ASDIRECTED PRN PRN Reason: Keep Vein Open Discontinued Medications Fentanyl (Sublimaze) Confirm Administered Dose 100 mcg .ROUTE .STK-MED ONE Stop: 08/27/17 01:58 Last Admin: 08/27/17 02:45 Dose: 100 mcg Lidocaine HCl (Xylocaine 1%) Confirm Administered Dose 50 ml .ROUTE .STK-MED ONE Stop: 08/27/17 08:07 - Problem List & Annotations (1) 39 weeks gestation of SNOMED Code(s): 06615229 Code(s): Z3A.39 - 39 WEEKS GESTATION OF Status: Acute Current Visit: Yes (2) Nuchal cord affecting delivery SNOMED Code(s): 393799599, 789502658 Code(s): O69.81X0 - LABOR AND DEL COMP BY CORD AROUND NECK, W/O COMPRSN, UNSP Status: Acute Current Visit: Yes (3) Second degree perineal laceration during delivery SNOMED Code(s): 7352402 Code(s): O70.1 - SECOND DEGREE PERINEAL LACERATION DURING DELIVERY Status: Acute Current Visit: Yes - Problem List Review Problem List Initiated/Reviewed/Updated: No - My Orders Last 24 Hours: My Active Orders 08/26/17 23:08 Urinary Catheter Assessment [RC] ASDIRECTED Ondansetron [Zofran] 4 mg IVPUSH Q4H PRN Sodium Chloride 0.9% [Saline Flush] 10 ml FLUSH ASDIRECTED PRN Resuscitation Status Routine 08/26/17 23:10 Patient Status [ADT] Routine Activity as Tolerated [RC] PFP Communication Order [RC] ASDIRECTED Heart Tones [RC] ASDIRECTED Notify Provider [RC] PFP Notify Provider [RC] PRN Peripheral IV Care [RC] . DIRECTED Pump Management, Intrathecal [RC] ASDIRECTED Vital Signs [RC] 09,15,21,03 Electronic Heart Tones Ext w TOCO [WOMSER] Routine Electronic Heart Tones Internal [WOMSER] Per Unit Routine Peripheral IV Insertion Adult [OM.PC] Routine 08/26/17 23:15 Lactated Ringers [Ringers, Lactated] 1,000 ml IV ASDIRECTED Oxytocin [Pitocin] 20 unit Lactated Ringers [Ringers, Lactated] 1,000 ml IV TITRATE 08/26/17 23:16 Calcium Carbonate [Tums] 500 mg PO Q2HR PRN 08/26/17 Dinner Clear Liquid Diet [DIET] 08/27/17 04:30 Oxytocin/Lactated Ringers [Pitocin in LR 10 Units/1,000 ML] 10 unit in 1,000 ml IV TITRATE - Plan Plan:: Plan delivery. Brief History: [facility] LIVE . L/D Delivery Note. Patient Name: KARINA LOPES Record Number: [id number]. Date of : Patient Status: Inpatient. Attending Provider: Juan Mata Number: [id number]. Date: 08/27/17 08:18Initialization Date: 08/27/17 08:18. L & D Note. - General Info. Date of Service: 08/27/17. Mother's Due Date: 08/28/17. - Delivery Note. Labor: Spontaneous, Augmented by Oxytocin. Delivery Outcome: Livebirth (Male liveborn at 0803 hrs. on 08/27/17Wednesday MARTIR nuchal cord 1 tight cut prior to delivery and delivered within 10 seconds. Apgars 7/9 weight 30/5/10 grams 7 pounds 11.8 ounces second-degree laceration). Delivery Method: Spontaneous Vaginal Delivery-Single. Delivery Mode: Spontaneous. Presentation: Right Occiput Anterior (MARTIR). Nuchal Cord: Present (Tight cut prior to delivery because unable to reduce over head or shoulders delivered within 10 seconds). Prep: Povidone-Iodine (Betadine. Anesthesia Type: Epidural. Amniotic Fluid Description: Clear. Episiotomy Type : None. Laceration: 2nd Degree. Suture type: Other (Monocryl 30 times one). Suture size: 3-0. Placenta: Intact, Spontaneous (Eccentric cord insertion). Estimated Blood Loss: 250. Resuscitation Needed: No. : Suctioned, Bulb Syringe, Stimulated, Warmed, [place] Used, Warmer Used. Provider: Juan Mata. Score 1 min: 7. Score 5 min: 9. - Patient Data. Vitals - Most Recent: Last Vital Signs. Temp 97.9 F 08/26/17 23:10. Pulse 84 08/27/17 03:46. Resp 16 08/27/17 03:46. BP 114/75 08/27/17 03:46. Pulse Ox 99 08/27/17 03:46. Weight - Most Recent: 173 lb. Lab Results Last 24 Hours: Laboratory Results - last 24 hr. 08/26/17Range/Units. 23:20. WBC 8.89 (3.98-10.04) K/mm3. RBC 4.35 (3.98-5.22) M/mm3. Hgb 12.4 (11.2-15.7) gm/L. Hct 36.2 (34.1-44.9) %. MCV 83.2 (79.4-94.8) fl. MCH 28.5 (25.6-32.2 ) pg. MCHC 34.3 (32.2-35.5) g/dl. RDW Std Deviation 54.5 H (36.4-46.3) fL. Plt Count 146 L (182-369) K/mm3. MPV 8.2 L (9.4-12.3) fl. Neut % (Auto) 63.1 (34.0-71.1) %. Lymph % (Auto) 26.0 (19.3-51.7) %. [place] % (Auto) 8.4 ( 4.7-12.5) %. Eos % (Auto) 1.5 (0.7-5.8). Baso % (Auto) 0.3 (0.1-1.2) %. Neut # (Auto) 5.61 (1.56-6.13) K/mm3. Lymph # (Auto) 2.31 (1.18-3.74) K/mm3. [place] # (Auto) 0.75 H (0.24-0.36) K/mm3. Eos # (Auto) 0.13 (0.04-0.36) K/ mm3. Baso # (Auto) 0.03 (0.01-0.08) K/mm3. Manual Slide Review Abnormal smear. Med Orders - Current: Current Medications. Calcium Carbonate/Glycine ( Tums) 500 mg PO Q2HR PRN. PRN Reason: Indigestion. Last Admin: 08/26/17 23: 31 Dose: 500 mg. Diphenhydramine HCl (Benadryl) 25 mg IVPUSH Q6H PRN. PRN Reason: Pruritis. Ephedrine Sulfate (Ephedrine Sulfate) 5 mg IVPUSH ASDIRECTED PRN. PRN Reason: Hypotension. Fentanyl (Sublimaze) 100 mcg EPIDUR ONETIME PRN. PRN Reason: Pain. Fentanyl/Bupivacaine HCl (Fentanyl/Bupivacaine/ Ns 2 Mcg-0.125% 100 Ml) 100 ml EPIDUR ASDIRECTED ANNALISE. Last Admin: 08/27/17 02: 44 Dose: 100 ml. Lactated Ringer's (Ringers, Lactated) 1,000 mls @ 100 mls/ hr IV ASDIRECTED ANNALISE. Last Admin: 08/27/17 07:18 Dose: 500 mls/hr. Oxytocin 20 unit/ Lactated (Ringer's) 1,002 mls @ 1,503 mls/hr IV TITRATE ANNALISE; Protocol. Oxytocin/Lactated Ringer's (Pitocin In Lr 10 Units/1,000 Ml) 10 unit in 1,000 mls @ 12 mls/hr IV TITRATE ANNALISE; Protocol. Last Admin: 08/27/17 04 :43 Dose: 2 munits/min, 12 mls/hr. Ondansetron HCl (Zofran) 4 mg IVPUSH Q4H PRN. PRN Reason: Nausea/Vomiting. Ondansetron HCl (Zofran) 4 mg IVPUSH ONETIME PRN. PRN Reason: Nausea/Vomiting. Sodium Chloride (Saline Flush) 10 ml FLUSH ASDIRECTED PRN. PRN Reason: Keep Vein Open. Discontinued Medications. Fentanyl (Sublimaze) Confirm Administered Dose 100 mcg .ROUTE .STK -MED ONE. Stop: 08/27/17 01:58. Last Admin: 08/27/17 02:45 Dose: 100 mcg. Lidocaine HCl (Xylocaine 1%) Confirm Administered Dose 50 ml .ROUTE .STK-MED ONE. Stop: 08/27/17 08:07. - Problem List & Annotations. (1) 39 weeks gestation of . SNOMED Code(s): 37073401. Code(s): Z3A.39 - 39 WEEKS GESTATION OF Status: Acute Current Visit: Yes. (2) Nuchal cord affecting delivery. SNOMED Code(s): 893094758, 312714368. Code(s): O69.81X0 - LABOR AND DEL COMP BY CORD AROUND NECK, W/O COMPRSN, UNSP Status: Acute Current Visit: Yes. (3) Second degree perineal laceration during delivery. SNOMED Code(s): 6561428. Code(s): O70.1 - SECOND DEGREE PERINEAL LACERATION DURING DELIVERY Status: Acute Current Visit: Yes. - Problem List Review. Problem List Initiated/Reviewed/Updated: No. - My Orders. Last 24 Hours: My Active Orders. 08/26/17 23:08. Urinary Catheter Assessment [RC] ASDIRECTED. Ondansetron [Zofran] 4 mg IVPUSH Q4H PRN. Sodium Chloride 0.9% [Saline Flush ] 10 ml FLUSH ASDIRECTED PRN. Resuscitation Status Routine. 08/26/17 23:10. Patient Status [ADT] Routine. Activity as Tolerated [RC] PFP. Communication Order [RC] ASDIRECTED. Heart Tones [RC] ASDIRECTED. Notify Provider [RC ] PFP. Notify Provider [RC] PRN. Peripheral IV Care [RC] . DIRECTED. Pump Management, Intrathecal [RC] ASDIRECTED. Vital Signs [RC] 09,15,21,03. Electronic Heart Tones Ext w TOCO [WOMSER] Routine. Electronic Heart Tones Internal [WOMSER] Per Unit Routine. Peripheral IV Insertion Adult [ OM.PC] Routine. 08/26/17 23:15. Lactated Ringers [Ringers, Lactated] 1,000 ml IV ASDIRECTED. Oxytocin [Pitocin] 20 unit Lactated Ringers [Ringers, Lactated ] 1,000 ml IV TITRATE. 08/26/17 23:16. Calcium Carbonate [Tums] 500 mg PO Q2HR PRN. 08/26/17 Dinner. Clear Liquid Diet [DIET]. 08/27/17 04:30. Oxytocin/Lactated Ringers [Pitocin in LR 10 Units/1,000 ML] 10 unit in 1,000 ml IV TITRATE. - Plan. Plan:: Plan delivery. - Discharge Data Discharge Date: 08/28/17 Discharge Disposition: Home, Self-Care 01 Condition: Good - Discharge Diagnosis/Problem(s) (1) 39 weeks gestation of SNOMED Code(s): 03348628 ICD Code: Z3A.39 - 39 WEEKS GESTATION OF Status: Acute Current Visit: Yes (2) Nuchal cord affecting delivery SNOMED Code(s): 801790330, 976463228 ICD Code: O69.81X0 - LABOR AND DEL COMP BY CORD AROUND NECK, W/O COMPRSN, UNSP Status: Acute Current Visit: Yes (3) Second degree perineal laceration during delivery SNOMED Code(s): 0321712 ICD Code: O70.1 - SECOND DEGREE PERINEAL LACERATION DURING DELIVERY Status : Acute Current Visit: Yes - Patient Summary/Data Complications: None Consults: None Hospital Course: Uneventful - Patient Instructions Diet: Regular Diet as Tolerated Driving: Do Not Drive (x48 hrs) Showering/Bathing: May Shower Notify Provider of: Fever, Increased Pain, Swelling and Redness, Drainage, Nausea and/or Vomiting - Discharge Plan Home Medications: Home Meds Pnv with Ca,No.72/Iron/Fa [Pnv Plus Multivit Tab] 1 each PO DAILY 05/23 [History] Ferrous Sulfate [Iron] 1 tab PO DAILY 08/26/17 [History] Acetaminophen [Tylenol] 650 mg PO Q4H PRN tablet 08/28/17 [Rx] Docusate Sodium [Colace] 100 mg PO BID PRN cap 08/28/17 [Rx] Ibuprofen [IJD: Ibuprofen] 600 mg PO Q4H PRN tablet 08/28/17 [Rx] Referrals: Juan Mata MD [Primary Care Provider] - (09/07/17) - Discharge Summary/Plan Comment DC Time >30 min.: No - Patient Data Vitals - Most Recent: Last Vital Signs Temp 97.2 F 08/28/17 04:22 Pulse 88 08/28/17 04:22 Resp 15 08/28/17 04:22 BP 109/75 08/28/17 04:22 Pulse Ox 98 08/28/17 04:22 Weight - Most Recent: 173 lb I&O - Last 24 hours: Intake & Output 08/27/17 08/28/17 08/28/17 22:59 06:59 14:59 Intake Total 60 Output Total 700 Balance -640 Lab Results - Last 24 hrs: Laboratory Results - last 24 hr 08/28/17 Range/Units 06:02 WBC 11.30 H (3.98-10.04) K/mm3 RBC 3.54 L (3.98-5.22) M/mm3 Hgb 10.0 L (11.2-15.7) gm/L Hct 30.0 L (34.1-44.9) % MCV 84.7 (79.4-94.8) fl MCH 28.2 (25.6-32.2) pg MCHC 33.3 (32.2-35.5) g/dl RDW Std Deviation 54.8 H (36.4-46.3) fL Plt Count 132 L (182-369) K/mm3 MPV 8.3 L (9.4-12.3) fl Neut % (Auto) 71.4 H (34.0-71.1) % Lymph % (Auto) 19.6 (19.3-51.7) % [place] % (Auto) 6.7 (4.7-12.5) % Eos % (Auto) 1.6 (0.7-5.8) Baso % (Auto) 0.3 (0.1-1.2) % Neut # (Auto) 8.07 H (1.56-6.13) K/mm3 Lymph # (Auto) 2.22 (1.18-3.74) K/mm3 [place] # (Auto) 0.76 H (0.24-0.36) K/mm3 Eos # (Auto) 0.18 (0.04-0.36) K/mm3 Baso # (Auto) 0.03 (0.01-0.08) K/mm3 Med Orders - Current: Current Medications Acetaminophen (Tylenol) 650 mg PO Q4H PRN PRN Reason: mild pain or fever Benzocaine/Menthol (Dermoplast Pain Relief [place]) 1 gm TOP ASDIRECTED PRN PRN Reason: Pain Last Admin: 08/27/17 16:05 Dose: 1 spray Docusate Sodium (Colace) 100 mg PO BID PRN PRN Reason: Constipation Emollient Ointment (Lansinoh Hpa) 1 gm TOP ASDIRECTED PRN PRN Reason: Pain Ibuprofen (Motrin) 600 mg PO Q4H PRN PRN Reason: Mild pain or fever Last Admin: 08/28/17 09:38 Dose: 600 mg Witch Shannan (Tucks) 1 pad TOP ASDIRECTED PRN PRN Reason: Pain Last Admin: 08/27/17 12:00 Dose: 1 pad Discontinued Medications Bupivacaine HCl (Sensorcaine-Mpf 0.25%) 10 ml .ROUTE .STK-MED ONE Stop: 08/27/17 01:01 Calcium Carbonate/Glycine (Tums) 500 mg PO Q2HR PRN PRN Reason: Indigestion Last Admin: 08/26/17 23:31 Dose: 500 mg Diphenhydramine HCl (Benadryl) 25 mg IVPUSH Q6H PRN PRN Reason: Pruritis Ephedrine Sulfate (Ephedrine Sulfate) 5 mg IVPUSH ASDIRECTED PRN PRN Reason: Hypotension Fentanyl (Sublimaze) Confirm Administered Dose 100 mcg .ROUTE .[email or web address] ONE Stop: 08/27/17 01:58 Last Admin: 08/27/17 02:45 Dose: 100 mcg Fentanyl (Sublimaze) 100 mcg EPIDUR ONETIME PRN PRN Reason: Pain Fentanyl/Bupivacaine HCl (Fentanyl/Bupivacaine/Ns 2 Mcg-0.125% 100 Ml) 100 ml EPIDUR ASDIRECTED ANNALISE Last Admin: 08/27/17 02:44 Dose: 100 ml Lactated Ringer's (Ringers, Lactated) 1,000 mls @ 100 mls/hr IV ASDIRECTED ANNALISE Last Admin: 08/27/17 07:18 Dose: 500 mls/hr Oxytocin 20 unit/ Lactated (Ringer's) 1,002 mls @ 1,503 mls/hr IV TITRATE ANNALISE; Protocol Oxytocin/Lactated Ringer's (Pitocin In Lr 10 Units/1,000 Ml) 10 unit in 1,000 mls @ 12 mls/hr IV TITRATE ANNALISE; Protocol Last Admin: 08/27/17 04:43 Dose: 2 munits/min, 12 mls/hr Lidocaine HCl (Xylocaine 1%) Confirm Administered Dose 50 ml .ROUTE .[email or web address] ONE Stop: 08/27/17 08:07 Ondansetron HCl (Zofran) 4 mg IVPUSH Q4H PRN PRN Reason: Nausea/Vomiting Ondansetron HCl (Zofran) 4 mg IVPUSH ONETIME PRN PRN Reason: Nausea/Vomiting Sodium Chloride (Saline Flush) 10 ml FLUSH ASDIRECTED PRN PRN Reason: Keep Vein Open
[2017-08-28 13:42] VITALS: BP 101/64
== END 2017-08-28 16:42 | disposition home or self-care (01) | DRG 560 ==
LOC: JD.OBCHECK 22:24 → JD.OB 22:28 → JD.OBCHECK 23:10 → JD.OB 23:10 → OBSVTOIN 08-27 08:03 → JD.OB 08-27 08:04
PROVIDERS: ADMIT Obstetrics & Gynecology; ATTEND Obstetrics & Gynecology
PROC: 10E0XZZ Delivery of Products of Conception, External Approach (ICD-10-PCS; principal; 2017-08-27)
PROC: 0KQM0ZZ Repair Perineum Muscle, Open Approach (ICD-10-PCS; 2017-08-27)
PROC: 00HU33Z Insertion of Infusion Device into Spinal Canal, Percutaneous Approach (ICD-10-PCS; 2017-08-27)
PROC: 3E0R3BZ Introduction of Anesthetic Agent into Spinal Canal, Percutaneous Approach (ICD-10-PCS; 2017-08-27)
DX: O69.1XX0 Labor and delivery complicated by cord around neck, with compression, not applicable or unspecified (principal); O70.1 Second degree perineal laceration during delivery; Z3A.39 39 weeks gestation of pregnancy; Z37.0 Single live birth; Z91.018 Allergy to other foods
CPT/HCPCS: 36415; 51702; 59025; 59300; 59409; 85025; A9270-GY; J2590; J3010; J7120